=== PATIENT | female | born 2000 | race Caucasian/White ===

== ENCOUNTER 2020-06-25 14:32 | Emergency (ER) | payer BC, OTHER ==
[~2020-06-25] VITALS: Ht 167.6 cm; Wt 50.9 kg
[2020-06-25 14:46] VITALS: BP 132/86
== END 2020-06-25 16:01 | disposition home or self-care (01) ==
LOC: ER 14:32
DX: J02.9 Acute pharyngitis, unspecified (principal)
CPT/HCPCS: 87081; 87880; 99283